=== PATIENT | male | born 2000 | race Caucasian/White ===

== ENCOUNTER 2020-06-30 16:47 | Outpatient (REF) | payer OTHER, SELFPAY ==
[2020-07-03 16:24] LABS: COVID-19 RT-PCR UVMMC Result Negative (Negative)
== END 2020-06-30 16:48 | disposition home or self-care (01) ==
LOC: NCHCN 16:47
PROVIDERS: PCP Nurse Practitioner Adult Health; Visit Provider Nurse Practitioner Adult Health
DX: J02.9 Acute pharyngitis, unspecified (principal); R50.9 Fever, unspecified; R53.83 Other fatigue; R19.7 Diarrhea, unspecified; R51.9 Headache, unspecified; Z20.822 Contact with and (suspected) exposure to COVID-19
CPT/HCPCS: U0003; 87081

== ENCOUNTER 2020-07-05 03:04 | Outpatient (CLI) | payer OTHER, SELFPAY ==
[2020-07-05 13:00] LABS: Abs Immature Grans 0.01 10^3/uL (0.0-0.06); Absolute Basophil Count 0.03 10^3/uL (0.0-0.2); Absolute Eosinophil Count 0.11 10^3/uL (0.0-0.7); Absolute Lymphocyte Count 2.09 10^3/uL (1.2-3.4); Absolute Monocyte Count 0.54 10^3/uL (0.1-0.8); Absolute Neutrophil Count 3.03 10^3/uL (1.2-6.7); Basophils % 0.5; Eosinophils % 1.9; HCT 43.2 % (40.0-50.0); HGB 14.7 g/dL (13.5-17.5); Immature Grans % 0.2; MCH 31.2 pg (27.0-33.0); MCV 91.7 fL (80-95); MPV 9.3 fL (8.0-11.0); Monocytes % 9.3; Neutrophils % 52.1; Nucleated RBC 0 %; Platelet Count 287 10^3/uL (130-400); RBC 4.71 10^6/uL (4.36-5.78); RDW-SD 40.6 fL; WBC 5.81 10^3/uL (4.4-10.8)
[2020-07-05 13:10] LABS: Mono Screening Negative (Negative)
== END 2020-07-05 03:05 | disposition home or self-care (01) ==
LOC: LBO 03:04
PROVIDERS: Visit Provider Physician Assistant
DX: J02.9 Acute pharyngitis, unspecified (principal)
CPT/HCPCS: 36415; 85025; 86308

== ENCOUNTER 2020-08-10 02:56 | Outpatient (CLI) | payer OTHER, SELFPAY ==
[2020-08-11 09:39] LABS: HIV-1/2 Ag & Ab Screen Negative (Negative)
[2020-08-11 13:53] LABS: HCV RNA Qualitative Undetected (Undetected)
[2020-08-12 10:02] LABS: Syphilis Total Ab w/Reflex Nonreactive (Nonreactive)
== END 2020-08-10 02:57 | disposition home or self-care (01) ==
LOC: LBO 02:57
DX: Z91.89 Other specified personal risk factors, not elsewhere classified (principal); Z11.4 Encounter for screening for human immunodeficiency virus [HIV]; Z72.52 High risk homosexual behavior
CPT/HCPCS: 36415; 87389; 87522; 86780